=== PATIENT | female | born 1965 | race Caucasian/White ===

== ENCOUNTER → 2020-03-16 | Outpatient (CLI) | payer OTHER ==
[~2020-03-16] MED LIST: GLUC15006 PO; HAIR SKIN NAIL PO; LAMO150T3 PO; LEVO112C2 PO; OMEP-110 PO; VENL37.511 PO; VITA1CAP PO; fish oil PO; gabapentin PO; vitamin D PO; zinc PO
== END | disposition home or self-care (01) ==
LOC: STAR 15:11
PROVIDERS: ATTEND Obstetrics & Gynecology Female Pelvic Medicine and Reconstructive Surgery
DX: U07.1 COVID-19 (principal); D25.9 Leiomyoma of uterus, unspecified; N85.2 Hypertrophy of uterus
CPT/HCPCS: 87635

== ENCOUNTER → 2020-04-18 | Outpatient (CLI) | payer OTHER | END | disposition home or self-care (01) | LOC: STAR 15:44 | PROVIDERS: ATTEND Obstetrics & Gynecology Female Pelvic Medicine and Reconstructive Surgery | DX: Z20.828 Contact with and (suspected) exposure to other viral communicable diseases (principal) | CPT/HCPCS: 87635 ==

== ENCOUNTER 2020-04-24 05:37 | Day surgery (SDC) | payer OTHER ==
[~2020-04-24] VITALS: Ht 172.7 cm; Wt 88.8 kg
[2020-04-24] MEDS ORDERED: CHLORHEXIDINE 15 ML UDC MM STA (06:04)
[2020-04-24] MEDS ORDERED: LACTATED RINGERS 1,000 ML IV SCH ×2 (06:30→10:30)
[2020-04-24] MEDS ORDERED: BUPIVACAINE/PF 0.25% ONE (06:53)
[2020-04-24] MEDS ORDERED: EPINEPHRINE 1 MG/ML, 1ML ONE (06:53)
[2020-04-24] MEDS ORDERED: INDIGO CARMINE 0.8%, 5ML ONE (06:54)
[2020-04-24] MEDS ORDERED: MIDAZOLAM 1 MG/ML, 2ML ONE (07:13)
[2020-04-24] MEDS ORDERED: FENTANYL PF 250 MCG/5ML ONE (07:13)
[2020-04-24] MEDS ORDERED: SODIUM CHLORIDE 0.9% PF 10ML ONE (07:15)
[2020-04-24] MEDS ORDERED: LIDOCAINE-MPF 2% ,5ML ONE (07:16)
[2020-04-24] MEDS ORDERED: ACETAMINOPHEN 500 MG TABLET PO ONE (07:30)
[2020-04-24] MEDS ORDERED: EPHEDRINE 50 MG/ML, 1ML IVPush PRN (07:30)
[2020-04-24] MEDS ORDERED: LABETALOL 5MG/ML, 20ML IV PRN (07:30)
[2020-04-24] MEDS ORDERED: HYDROmorphone 1 MG/ML, 1ML INJ IVPush PRN (07:30)
[2020-04-24] MEDS ORDERED: PROMETHAZINE 25 MG/ML, 1ML IVPush PRN (07:30)
[2020-04-24] MEDS ORDERED: ONDANSETRON 2MG/ML, 2ML IVPush PRN ×2 (07:30→10:30)
[2020-04-24] MEDS ORDERED: hydrALAzine 20 MG/ML, 1ML IV PRN (07:30)
[2020-04-24] MEDS ORDERED: DEXAMETHASONE 4 MG/ML, 5ML ONE (07:36)
[2020-04-24] MEDS ORDERED: KETOROLAC 30 MG/1 ML ONE (07:36)
[2020-04-24] MEDS ORDERED: SUCCINYLCHOLINE 20 MG/ML, 10ML ONE (07:36)
[2020-04-24] MEDS ORDERED: ROCURONIUM 10MG/ML,5ML ONE (07:36)
[2020-04-24] MEDS ORDERED: PROPOFOL 10 MG/ML, 20ML ONE (07:36)
[2020-04-24] MEDS ORDERED: ONDANSETRON 2MG/ML, 2ML ONE (07:36)
[2020-04-24] MEDS ORDERED: SUGAMMADEX 200 MG/2 ML IVPush ONE (07:36)
[2020-04-24] MEDS ORDERED: CEFAZOLIN 1,000 MG ONE (07:36)
[2020-04-24] MEDS ORDERED: NEOMY/POLYMYXIN B GU IRR. 1 ML ONE (09:36)
[2020-04-24] MEDS ORDERED: EPHEDRINE 50 MG/ML, 1ML ONE (09:45)
[2020-04-24] MEDS ORDERED: FENTANYL PF 100 MCG/2ML ONE (10:18)
[2020-04-24] MEDS: FENTANYL PF 100 MCG/2ML IV PRN ×2 (10:24→10:33)
[2020-04-24] MEDS ORDERED: PROMETHAZINE 25 MG SUPP PR ONE (10:30)
[2020-04-24] MEDS ORDERED: IBUPROFEN 600 MG TABLET PO PRN (10:30)
[2020-04-24] MEDS ORDERED: HYDROcodone/APAP 7.5-325MG/15ML UDC ONE ×2 (10:33→10:41)
[2020-04-24] MEDS: HYDROcodone/APAP 7.5-325MG/15ML UDC PO PRN ×2 (10:34→10:41)
== END 2020-04-24 13:30 | disposition home or self-care (01) ==
LOC: OR 05:37 → OUT 13:30
PROVIDERS: ATTEND Obstetrics & Gynecology Female Pelvic Medicine and Reconstructive Surgery
DX: D25.9 Leiomyoma of uterus, unspecified (principal); D27.1 Benign neoplasm of left ovary; N94.89 Other specified conditions associated with female genital organs and menstrual cycle; N81.6 Rectocele; E03.9 Hypothyroidism, unspecified; G43.909 Migraine, unspecified, not intractable, without status migrainosus; F32.9 Major depressive disorder, single episode, unspecified; K21.9 Gastro-esophageal reflux disease without esophagitis; J45.909 Unspecified asthma, uncomplicated; F17.200 Nicotine dependence, unspecified, uncomplicated; Z79.890 Hormone replacement therapy; Z79.899 Other long term (current) drug therapy; Z88.5 Allergy status to narcotic agent; Z90.49 Acquired absence of other specified parts of digestive tract; Z98.890 Other specified postprocedural states; Z80.8 Family history of malignant neoplasm of other organs or systems
CPT/HCPCS: 57250; 57282; 58552; 88307; J0171; J0330; J0690; J1100; J1885; J2250; J2405; J2704; J3010; J7120; S2900